=== PATIENT | male | born 1940 | race Caucasian/White ===

== ENCOUNTER 2016-08-19 01:41 | Emergency (ER) | payer MEDICARE, OTHER ==
[~2016-08-19] VITALS: Ht 170.2 cm; Wt 104.3 kg
[~2016-08-19 01:41] MED LIST: ARTIFICIAL TEA1 EAC1 OP; BUMETANIDE 1MG T1 MG PO; CETRAXAL0.2% OT; COLCHICINE0.6 M4 PO; COUMADIN 5MG TAB5 MG PO; GOOD SENSE OMEP20 MG PO; HYDRALAZINE HCL25 M1 PO; ISOSORBIDE DINI20 MG PO; K-DUR 20MEQ TA20 MEQ PO; LIPITOR80 MG PO; METOPROLOL TAR100 MG PO; NITROGLYCERIN0.4 MG SL; STRIVERDI2.5 MCG/Ac IH; TAMSULOSIN HYD0.4 MG PO; TRAMADOL 50MG T50 MG PO
--- NOTE | 2016-08-19 01:55 | Emergency Room Report ---
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 N Clinical Suspician of Infection? N Mental Status: 1 - Regular (Normal Baseline) Sepsis Risk:Low Sepsis Risk Have you (or family members/close friends) recently traveled outside the [place]? N If Yes, where/when: Have you had exposure to infectious disease within the past month? N TB? Other? Specify: Source patient, RN notes reviewed, EMS, old records Exam Limitations no limitations Comment pt with extensive hx of cad/chf who was recently admitted [facility] and released for chf- he reports progressive sob with leg edema over the last few days and tonight dev chest tightness Cardiac Chest Pain Chest pain indicative of cardiac Yes Timing/Duration 1 hour, gone now Severity/Quality moderate, pressure Location central Chest Pain Radiation no radiation Activities at Onset light activity Nitro Today/Relief 0.4 mg x 1, provided by EMS, complete relief Aspirin Treatment Today 325 mg x 1, provided by ED Beta luz treatment today no beta luz taken Cardiac risk factors + cardiovascular disease, Diabetes, HTN controlled, sedentary lifestyle Prior Workup/Intervention heart attack Timing/Duration this evening Severity moderate ALLERGIES Coded Allergies: lisinopril (Severe, [id number]/THROAT 06/12/16) Home Medications Active Scripts NITROGLYCERIN (Nitrostat) 0.4 MG SL [id number] PRN CHEST PAIN #25 TABLET Prov: 06/09/16 Reported Medications Dextran 70/Hypromellose/Pf (Artificial Tears Drops) 1 EACH OP BID WARFARIN SOD (Coumadin) 5 MG PO DAILY TAMSULOSIN HCL (Tamsulosin 0.4MG) 0.4 MG PO QHS POTASSIUM CHL (Potassium Chloride) 20 MEQ PO BID Omeprazole 20 MG PO BID OLODATEROL HCL (Striverdi Respimat) 2 PUFFS IH DAILY Colchicine 0.6 MG PO DAILY Bumetanide (Bumetanide 1MG Tablet) 2 MG PO DAILY Atorvastatin Calcium (Atorvastatin) 80 MG PO DAILY History Medical History General CAD? Yes Angina: Yes [place]: Yes Hypertension? Yes Hyperlipidemia? Yes CHF? Yes DVT? No PE? No COPD? Yes Asthma? Yes Anemia? No GERD? No Gastric ulcers? No GI Bleed? No Hernia? No Thyroid Problems? No Hypothyroidism? No CVA? No Seizures? No Diabetes? Yes Insulin Dependent: No Insulin Pump: No Home FSBS? Yes Renal Insuffiency? No End Stage Renal Disease? No UTI? No Stones? No BPH? No GB Disease: No Nephritic Syndrome? No Asplenia? No Hepatitis? No Sickle Cell Disease? No Arthritis? No Migraines? No Cataracts? No Glaucoma? No MRSA? No HIV? No TB? No Anxiety? No Depression? No Cancer? No More? No Immunization Hx DT/Tetanus 1-4 YRS Flu 2015-FSN Pneumonia Received In Past Surgical Hx Previous Surgery?Y Coronary Artery Bypass GALLBLADDER VASECTOMY Hemorrhoidectomy Family History Family Hx Diabetes Yes CAD No Hypertension Yes Hyperlipidemia Yes Cancer No TB No Social History Smoking Hx Smoker: Former Smoker Tobacco: No Type Cigarettes Packs/day < 1 Pack Alcohol Alcohol: No Drugs none Review of Systems All Other Systems Reviewed and Negative Constitutional denies fever Eyes denies drainage ENT denies: ear pain, epistaxis, throat pain. Respiratory denies cough, denies shortness of breath, denies wheezing Cardiovascular see HPI, chest pain, denies syncope, other Gastrointestinal denies abdominal pain, denies diarrhea, denies vomiting Genitourinary denies: dysuria, frequency, hesitancy, hematuria. Musculoskeletal denies back pain, denies joint pain, denies neck pain Skin denies rash Psychiatric/Neurological denies headache, denies seizure Physical Exam Vital Signs Vital Signs Date Time Temp Pulse Resp B/P Pulse O2 O2 Flow FiO2 Ox Delivery Rate 08/19 0420 95 18 107/53 96 2 08/19 0323 101 18 139/72 96 2 08/19 0250 96 18 140/81 94 2 08/19 0222 88 18 128/69 91 2 08/19 0142 98.6 96 18 130/70 91 2 - WBC >12,000 or <4,000 or 10% bands? 2 or more SIRS Criteria Met? B/P:130/70 MAP:90 Creatinine >2.0? UA output<0.5ml/kg/hr for 2 hrs? Platelet count >100,000? Lactate >2.0mmol/1? INR >1.2 or PTT > than 60 sec? Evidence of Organ Dysfunction? Provider documented clinical suspician of infection? N Sepsis Criteria Count: 1 Sepsis Risk: Low Sepsis Risk General Appearance no apparent distress Eye Exam - bilateral eye PERRL, bilateral eye EOMI Ear, Nose, Throat normal ENT inspection Neck supple Respiratory Status No: respiratory distress. Lung Sounds bilateral: decreased breath sounds, crackles. 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 No Results/Orders Laboratory Tests 08/19/16 0345: Troponin I < 0.02 08/19/16 0220: Urine Color YELLOW, Urine Appearance CLEAR, Urine pH 6.0, Ur Specific [place] <= 1.005, Urine Protein NEGATIVE, Urine Ketones NEGATIVE, Urine Blood NEGATIVE, Urine Nitrate NEGATIVE, Urine Bilirubin NEGATIVE, Urine Urobilinogen 0.2, Ur Leukocyte Esterase NEGATIVE, Urine WBC 3-5, Urine Bacteria 1+, Urine Glucose NEGATIVE 08/19/16 0206: TSH 1.69, Thyroxine (T4) 5.7 08/19/16 0206: Lactic Acid 1.4 08/19/16 0206: B-Natriuretic Peptide 829 H 08/19/16 0206: Sodium 143, Potassium 3.7, Chloride 103, Carbon Dioxide 32, BUN 21 H, Creatinine 1.4 H, Estimated Creat Clear 68, Estimated GFR (MDRD) 50, Glucose 122 H, Calcium 8.5, Total Bilirubin 0.5, AST 12 L, ALT 13, Alkaline Phosphatase 87, Creatine Kinase 79, CK-MB (CK-2) Rel Index 0.8, CK and CKMB Interp 0.6, Troponin I < 0.02, Total Protein 8.1, Albumin 3.1 L, Globulin 5.0 H, Albumin/Globulin Ratio 0.6 L, PT 18.8 H, INR 1.76 H, WBC 9.1, RBC 3.74 L, Hgb 11.1 L, Hct 34.2 L, MCV 91.2, RDW 16.2, Plt Count 205, MPV 9.1, Gran % 80.1 H, Gran # 7.3, Lymphocytes % 12.5, Monocytes % 4.7, Eosinophils % 2.3, Basophils % 0.4, Lymphocytes # 1.1, Monocytes # 0.4, Eosinophils # 0.2, Basophils # 0.0, PUBS MCHC 32.6, MCH 29.8 Current Medication Orders Sig/Gabriela Start time Last Medication Dose Route Stop Time Status Admin Furosemide 40 MG ONCE ONE 08/19 033 DC 08/19 IV 08/19 330 0320 Furosemide 0 .STK-MED ONE 08/19 317 DC .ROUTE Acetaminophen 650 MG ONCE ONE 08/19 314 DC 08/19 PO 08/19 315 0305 Acetaminophen 0 .STK-MED ONE 08/19 303 DC PO Nitroglycerin 0 .STK-MED ONE 08/19 227 DC .ROUTE Aspirin 0 .STK-MED ONE 08/19 225 DC .ROUTE Aspirin 324 MG ONCE ONE 08/19 0200 DC 08/19 PO 08/19 020 0229 Nitroglycerin 1 IN ONCE ONE 08/19 0200 DC 08/19 TP 08/19 020 0229 Sodium Chloride 10 ML PRN PRN 08/19 020 AC IV 08/20 0153 Orders Procedure Date/time Status TROPONIN I 08/19 0343 Complete URINALYSIS/COMPLETE 08/19 022 Complete THYROID STIMULATING HORMONE 08/19 015 Complete THYROXINE (T4) 08/19 015 Complete PROTHROMBIN TIME 08/19 015 Complete OXYGEN REQUEST 08/19 015 Active IV SALINE LOCK 08/19 015 Active BRAIN NATRIURETIC PEPTIDE 08/19 015 Complete ELECTROCARDIOGRAM REQUEST 08/19 148 Active CHEST-PORTABLE 08/19 148 Active CULTURE, BLOOD 08/19 148 Active LACTIC ACID 08/19 148 Complete CBC WITH AUTO DIFF 08/19 148 Complete CARDIAC ENZYMES 08/19 148 Complete CHEM 12 PROFILE 08/19 148 Complete 12 LEAD EKG-[facility] (INITIAL) 08/19 UNK Active 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 ST/Twave chgs, RBBB, lahb XRAY/CT/US XRAY/CT/US XRAY chest XR interpretation by reviewed by me Xray Results abnormal (cm/chf) Departure Departure Time of Disposition 0508 Disposition DC/[facility]FER from ER to [facility] Clinical Impression Primary Impression: CHF (congestive heart failure) Qualifiers: Congestive heart failure type: combined Congestive heart failure chronicity: acute on chronic Qualified Code: I50.43 - Acute on chronic combined systolic (congestive) and diastolic (congestive) heart failure Secondary Impressions: Chest tightness or pressure, Renal insufficiency Condition STABLE Additional Instructions discussed with brody ralph ED Critical Care Critical Care Yes Time spent 30-74 min Vital system(s) involved: Circulatory Failure I was present at bedside for Coordinating pt's care, Interpreting EKGs/Strips , Reviewing lab results, Reviewing old records, Discussing pt condition, For re- examinations, Examining radiographs If Critical Care minutes are documented, the time involved in the performance of seperately reportable procedures was not counted toward critical care time documented. I directly delivered medical care to this critically ill and/or injured patient. Timely evaluation and treatment was necessary to address the significant organ system(s) dysfunction present in this patient. at [id number]
--- NOTE | 2016-08-19 01:55 | Emergency Room Report ---
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 N Clinical Suspician of Infection? N Mental Status: 1 - Regular (Normal Baseline) Sepsis Risk:Low Sepsis Risk Have you (or family members/close friends) recently traveled outside the [place]? N If Yes, where/when: Have you had exposure to infectious disease within the past month? N TB? Other? Specify: Source patient, RN notes reviewed, EMS, old records Exam Limitations no limitations Comment pt with extensive hx of cad/chf who [facility] for [facility]- he reports progressive sob with leg edema over the last few days and tonight dev chest tightness Cardiac Chest Pain Chest pain indicative of cardiac Yes Timing/Duration 1 hour, gone now Severity/Quality moderate, pressure Location central Chest Pain Radiation no radiation Activities at Onset light activity Nitro Today/Relief 0.4 mg x 1, provided by EMS, complete relief Aspirin Treatment Today 325 mg x 1, provided by ED Beta luz treatment today no beta luz taken Cardiac risk factors + cardiovascular disease, Diabetes, HTN controlled, sedentary lifestyle Prior Workup/Intervention heart attack Timing/Duration this evening Severity moderate ALLERGIES Coded Allergies: lisinopril (Severe, [id number]/THROAT 06/12/16) Home Medications Active Scripts NITROGLYCERIN (Nitrostat) 0.4 MG SL [id number] PRN CHEST PAIN #25 TABLET Prov: 06/09/16 Reported Medications Dextran 70/Hypromellose/Pf (Artificial Tears Drops) 1 EACH OP BID WARFARIN SOD (Coumadin) 5 MG PO DAILY TAMSULOSIN HCL (Tamsulosin 0.4MG) 0.4 MG PO QHS POTASSIUM CHL (Potassium Chloride) 20 MEQ PO BID Omeprazole 20 MG PO BID OLODATEROL HCL (Striverdi Respimat) 2 PUFFS IH DAILY Colchicine 0.6 MG PO DAILY Bumetanide (Bumetanide 1MG Tablet) 2 MG PO DAILY Atorvastatin Calcium (Atorvastatin) 80 MG PO DAILY History Medical History General CAD? Yes Angina: Yes [place]: Yes Hypertension? Yes Hyperlipidemia? Yes CHF? Yes DVT? No PE? No COPD? Yes Asthma? Yes Anemia? No GERD? No Gastric ulcers? No GI Bleed? No Hernia? No Thyroid Problems? No Hypothyroidism? No CVA? No Seizures? No Diabetes? Yes Insulin Dependent: No Insulin Pump: No Home FSBS? Yes Renal Insuffiency? No End Stage Renal Disease? No UTI? No Stones? No BPH? No GB Disease: No Nephritic Syndrome? No Asplenia? No Hepatitis? No Sickle Cell Disease? No Arthritis? No Migraines? No Cataracts? No Glaucoma? No MRSA? No HIV? No TB? No Anxiety? No Depression? No Cancer? No More? No Immunization Hx DT/Tetanus 1-4 YRS Flu 2015-FSN Pneumonia Received In Past Surgical Hx Previous Surgery?Y Coronary Artery Bypass GALLBLADDER VASECTOMY Hemorrhoidectomy Family History Family Hx Diabetes Yes CAD No Hypertension Yes Hyperlipidemia Yes Cancer No TB No Social History Smoking Hx Smoker: Former Smoker Tobacco: No Type Cigarettes Packs/day < 1 Pack Alcohol Alcohol: No Drugs none Review of Systems All Other Systems Reviewed and Negative Constitutional denies fever Eyes denies drainage ENT denies: ear pain, epistaxis, throat pain. Respiratory denies cough, denies shortness of breath, denies wheezing Cardiovascular see HPI, chest pain, denies syncope, other Gastrointestinal denies abdominal pain, denies diarrhea, denies vomiting Genitourinary denies: dysuria, frequency, hesitancy, hematuria. Musculoskeletal denies back pain, denies joint pain, denies neck pain Skin denies rash Psychiatric/Neurological denies headache, denies seizure Physical Exam Vital Signs Vital Signs Date Time Temp Pulse Resp B/P Pulse O2 O2 Flow FiO2 Ox Delivery Rate 08/19 0420 95 18 107/53 96 2 08/19 0323 101 18 139/72 96 2 08/19 0250 96 18 140/81 94 2 08/19 0222 88 18 128/69 91 2 08/19 0142 98.6 96 18 130/70 91 2 - WBC >12,000 or <4,000 or 10% bands? 2 or more SIRS Criteria Met? B/P:130/70 MAP:90 Creatinine >2.0? UA output<0.5ml/kg/hr for 2 hrs? Platelet count >100,000? Lactate >2.0mmol/1? INR >1.2 or PTT > than 60 sec? Evidence of Organ Dysfunction? Provider documented clinical suspician of infection? N Sepsis Criteria Count: 1 Sepsis Risk: Low Sepsis Risk General Appearance no apparent distress Eye Exam - bilateral eye PERRL, bilateral eye EOMI Ear, Nose, Throat normal ENT inspection Neck supple Respiratory Status No: respiratory distress. Lung Sounds bilateral: decreased breath sounds, crackles. 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 No Results/Orders Laboratory Tests 08/19/16 0345: Troponin I < 0.02 08/19/16 0220: Urine Color YELLOW, Urine Appearance CLEAR, Urine pH 6.0, Ur Specific [place] <= 1.005, Urine Protein NEGATIVE, Urine Ketones NEGATIVE, Urine Blood NEGATIVE, Urine Nitrate NEGATIVE, Urine Bilirubin NEGATIVE, Urine Urobilinogen 0.2, Ur Leukocyte Esterase NEGATIVE, Urine WBC 3-5, Urine Bacteria 1+, Urine Glucose NEGATIVE 08/19/16 0206: TSH 1.69, Thyroxine (T4) 5.7 08/19/16 0206: Lactic Acid 1.4 08/19/16 0206: B-Natriuretic Peptide 829 H 08/19/16 0206: Sodium 143, Potassium 3.7, Chloride 103, Carbon Dioxide 32, BUN 21 H, Creatinine 1.4 H, Estimated Creat Clear 68, Estimated GFR (MDRD) 50, Glucose 122 H, Calcium 8.5, Total Bilirubin 0.5, AST 12 L, ALT 13, Alkaline Phosphatase 87, Creatine Kinase 79, CK-MB (CK-2) Rel Index 0.8, CK and CKMB Interp 0.6, Troponin I < 0.02, Total Protein 8.1, Albumin 3.1 L, Globulin 5.0 H, Albumin/Globulin Ratio 0.6 L, PT 18.8 H, INR 1.76 H, WBC 9.1, RBC 3.74 L, Hgb 11.1 L, Hct 34.2 L, MCV 91.2, RDW 16.2, Plt Count 205, MPV 9.1, Gran % 80.1 H, Gran # 7.3, Lymphocytes % 12.5, Monocytes % 4.7, Eosinophils % 2.3, Basophils % 0.4, Lymphocytes # 1.1, Monocytes # 0.4, Eosinophils # 0.2, Basophils # 0.0, PUBS MCHC 32.6, MCH 29.8 Current Medication Orders Sig/Gabriela Start time Last Medication Dose Route Stop Time Status Admin Furosemide 40 MG ONCE ONE 08/19 033 DC 08/19 IV 08/19 330 0320 Furosemide 0 .STK-MED ONE 08/19 317 DC .ROUTE Acetaminophen 650 MG ONCE ONE 08/19 314 DC 08/19 PO 08/19 315 0305 Acetaminophen 0 .STK-MED ONE 08/19 303 DC PO Nitroglycerin 0 .STK-MED ONE 08/19 227 DC .ROUTE Aspirin 0 .STK-MED ONE 08/19 225 DC .ROUTE Aspirin 324 MG ONCE ONE 08/19 0200 DC 08/19 PO 08/19 020 0229 Nitroglycerin 1 IN ONCE ONE 08/19 0200 DC 08/19 TP 08/19 020 0229 Sodium Chloride 10 ML PRN PRN 08/19 020 AC IV 08/20 0153 Orders Procedure Date/time Status TROPONIN I 08/19 0343 Complete URINALYSIS/COMPLETE 08/19 022 Complete THYROID STIMULATING HORMONE 08/19 015 Complete THYROXINE (T4) 08/19 015 Complete PROTHROMBIN TIME 08/19 015 Complete OXYGEN REQUEST 08/19 015 Active IV SALINE LOCK 08/19 015 Active BRAIN NATRIURETIC PEPTIDE 08/19 015 Complete ELECTROCARDIOGRAM REQUEST 08/19 148 Active CHEST-PORTABLE 08/19 148 Active CULTURE, BLOOD 08/19 148 Active LACTIC ACID 08/19 148 Complete CBC WITH AUTO DIFF 08/19 148 Complete CARDIAC ENZYMES 08/19 148 Complete CHEM 12 PROFILE 08/19 148 Complete 12 LEAD EKG-[facility] (INITIAL) 08/19 UNK Active 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 ST/Twave chgs, RBBB, lahb XRAY/CT/US XRAY/CT/US XRAY chest XR interpretation by reviewed by me Xray Results abnormal (cm/chf) Departure Departure Time of Disposition 0508 Disposition DC/[facility]FER from ER to [facility] Clinical Impression Primary Impression: CHF (congestive heart failure) Qualifiers: Congestive heart failure type: combined Congestive heart failure chronicity: acute on chronic Qualified Code: I50.43 - Acute on chronic combined systolic (congestive) and diastolic (congestive) heart failure Secondary Impressions: Chest tightness or pressure, Renal insufficiency Condition STABLE Additional Instructions discussed with brody ralph ED Critical Care Critical Care Yes Time spent 30-74 min Vital system(s) involved: Circulatory Failure I was present at bedside for Coordinating pt's care, Interpreting EKGs/Strips , Reviewing lab results, Reviewing old records, Discussing pt condition, For re- examinations, Examining radiographs If Critical Care minutes are documented, the time involved in the performance of seperately reportable procedures was not counted toward critical care time documented. I directly delivered medical care to this critically ill and/or injured patient. Timely evaluation and treatment was necessary to address the significant organ system(s) dysfunction present in this patient. at [id number]
[2016-08-19 02:21] LABS: HEMOGLOBIN 11.1 g/dL (14.1-18.0); LYMPH # 1.1 K/mm3 (0.7-4.5); LYMPH % 12.5 % (10-50)
[2016-08-19 02:29] LABS: URINE BILIRUBIN - DIPSTICK NEGATIVE (NEG); URINE BLOOD NEGATIVE (NEG)
[2016-08-19 02:47] LABS: BUN 21 mg/dL (7-18); GFR (ESTIMATED) 50 ML/MIN (>60)
--- NOTE | 2016-08-19 05:29 | RADIOLOGY REPORT PS360 ---
CHEST-PORTABLE HISTORY: CHEST PRESSURE COMPARISON: 06/12/2016 FINDINGS: Cardiomegaly with pulmonary venous congestion. Prior CABG. There are chronic changes in the left perihilar region and left lower lobe. Small bilateral effusions. Interstitium is prominent probably due to chronic CHF with interstitial edema. IMPRESSION: Chronic CHF with chronic changes in the left lower lobe and lung bases.
[2016-08-19 07:07] VITALS: BP 122/62
[2016-08-27] MEDS ORDERED: WARFARIN SODIU2.5 MG PO (16:10)
[2016-09-17] MEDS ORDERED: ALBUTEROL-200 PUFFS/ IH (18:24)
[2016-09-17] MEDS ORDERED: ALBUTEROL SULFAT3 M2 IH (18:25)
[2016-09-17] MEDS ORDERED: BUDESONIDE0.5 MG/2 M IH (18:27)
[2016-09-17] MEDS ORDERED: TIOTROPIUM BRO18 MCG IH (18:28)
[2016-09-17] MEDS ORDERED: DOCUSATE S100 MG/10 PO (18:29)
[2016-09-17] MEDS ORDERED: BUMETANIDE 1MG T1 MG PO (18:32)
[2016-09-17] MEDS ORDERED: CARVEDILOL 1212.5 MG PO (18:33)
[2016-09-17] MEDS ORDERED: ASPIRIN 81MG TA81 MG PO (18:33)
== END 2016-08-19 08:50 | disposition short-term general hospital (02) ==
LOC: ER 01:41
PROVIDERS: Emergency Medicine
DX: I50.43 Acute on chronic combined systolic (congestive) and diastolic (congestive) heart failure (principal); R07.89 Other chest pain; Z87.891 Personal history of nicotine dependence; E11.9 Type 2 diabetes mellitus without complications; J44.9 Chronic obstructive pulmonary disease, unspecified; I10 Essential (primary) hypertension